=== PATIENT | male | born 1995 | race African-American/Black ===

== ENCOUNTER 2017-10-01 16:09 | Emergency (ER) | payer OTHER ==
[2017-10-01 16:25] VITALS: BP 115/75; PULSE 80; TEMP 98.7; BMI 20.9
--- NOTE | 2017-10-01 16:29 | PDOC ---
History of Present Illness <Adolfo Noe - Last Filed: 10/01/17 17:04> - General History Source: Patient, Parent(s) Exam Limitations: No Limitations - History of Present Illness Initial Comments: 10/01/17 16:43 The patient is a 22 year old male with no significant past medical history who presents to the ED with complaints of abdominal pain, nausea, vomiting, and diarrhea that began last evening while at work. 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 He reports multiple episodes of nonbloody and nonbilious vomiting as well as multiple episodes of brown loose stool which has begun to subsided this afternoon although he remains nauseous. He denies any recent fevers or chills, denies any cough, SOB, CP, or urinary symptoms. <Callie Bellamy - Last Filed: 10/01/17 17:06> - General Chief Complaint: Nausea/Vomiting Stated Complaint: NAUSEA VOMITING AND LOOSE STOOL YESTERDAY AFTER EA Time Seen by Provider: 10/01/17 16:21 Past History - Past Medical History COPD: Yes Other medical history: DENIES - Suicide/Smoking/Psychosocial Hx Smoking History: Never smoked Have you smoked in the past 12 months: No Information on smoking cessation initiated: No Hx Alcohol Use: No Drug/Substance Use Hx: No Substance Use Type: None <Adolfo Noe - Last Filed: 10/01/17 17:04> <Callie Bellamy - Last Filed: 10/01/17 17:06> - Past Medical History Allergies/Adverse Reactions: Allergies Allergy/AdvReac Type Severity Reaction Status Date / Time No Known Allergies Allergy Unverified 10/01/17 16:12 Home Medications: Ambulatory Orders NK [No Known Home Medication] 10/01/17 Review of Systems - Review of Systems Able to Perform ROS?: Yes Comments:: 10/01/17 16:43 CONSTITUTIONAL: Absent: fever, no chills, no fatigue EYES: Absent: visual changes ENT: Absent: ear pain, no sore throat CARDIOVASCULAR: Absent: chest pain, no palpitations RESPIRATORY: Absent: cough, no SOB GI: Present: nausea, vomiting, diarrhea, abdominal pain Absent: no constipation GENITOURINARY: Absent: dysuria, no frequency, no hematuria MUSKULOSKELETAL: Absent: back pain, no arthralgia, no myalgia SKIN: Absent: rash NEURO: Absent: headache All Other Systems: Reviewed and Negative <Callie Bellamy - Last Filed: 10/01/17 17:06> *Physical Exam - Vital Signs Last Vital Signs Temp Pulse Resp BP Pulse Ox 98.7 F 80 16 115/75 98 10/01/17 16:11 10/01/17 16:11 10/01/17 16:11 10/01/17 16:11 10/01/17 16:11 <Adolfo Noe - Last Filed: 10/01/17 17:04> - Vital Signs Last Vital Signs Temp Pulse Resp BP Pulse Ox 98.7 F 80 16 115/75 98 10/01/17 16:11 10/01/17 16:11 10/01/17 16:11 10/01/17 16:11 10/01/17 16:11 - Physical Exam Comments: 10/01/17 17:05 GENERAL: Well-appearing, well-nourished. No apparent distress. HEENT: Normocephalic, atraumatic. PERRL, EOM intact. CARDIOVASCULAR: Normal S1, S2. Regular rate and rhythm. PULMONARY: Clear to auscultation bilaterally. ABDOMEN: Soft, non-distended, non-tender. No organomegaly. EXTREMITIES: Normal ROM in all four extremities. No gross deformities. SKIN: Warm, dry. No rash NEUROLOGICAL: No focal neurological deficits. <Callie Bellamy - Last Filed: 10/01/17 17:06> Medical Decision Making - Medical Decision Making 10/01/17 17:04 Patient with mild gastroenteritis, symptoms resolving. Physical exam is normal and hydration is adequate Light diet and lots of clear liquids recommended. To stay out of work for several days and to recheck if symptoms recur. Fully ambulatory and in no distress upon discharge with his mother to follow-up as directed <Adolfo Noe - Last Filed: 10/01/17 17:04> *DC/Admit/Observation/Transfer - Discharge Dispostion Decision to Admit order: No - Post Discharge Activity Activity Comments: 10/01/17 16:30 If there is fever, worsening vomiting or diarrhea, or inability to hold down liquids, return to the emergency room. Otherwise follow-up with primary physician. <Adolfo Noe - Last Filed: 10/01/17 17:04> - Attestations Scribe Attestion: 10/01/17 16:44 Documentation prepared by Callie Bellamy, acting as ophthalmic medical assistant for Adolfo Villagomez MD. <Callie Bellamy - Last Filed: 10/01/17 17:06> Diagnosis at time of Disposition: Gastroenteritis - Discharge Dispostion Disposition: HOME Condition at time of disposition: Stable - Patient Instructions Printed Discharge Instructions: DI for Diarrhea and Traveler's Diarrhea -- Adult, DI for Nausea -- Adult, DI for Vomiting -- Adult - Post Discharge Activity Forms/Work/School Notes: Back to Work
== END 2017-10-01 16:36 | disposition home or self-care (01) ==
LOC: FER 16:09
DX: K52.9 Noninfective gastroenteritis and colitis, unspecified (principal); J44.9 Chronic obstructive pulmonary disease, unspecified
CPT/HCPCS: 99282-25

== ENCOUNTER 2019-05-25 13:30 | Emergency (ER) | payer OTHER ==
[2019-05-25 13:59] VITALS: BP 120/73; PULSE 108; TEMP 99.2
--- NOTE | 2019-05-25 13:59 | PDOC ---
History of Present Illness - General Chief Complaint: Respiratory Stated Complaint: FLU - History of Present Illness Initial Comments: The pt is a 23M w/ no PMH who presents for evaluation of 1 day of tactile fevers and nasal congestion. Endorses associated cough, decreased PO intake, and known mother sick contact. He has tried Robitussin DM and Tylenol for his symptoms with some relief. Denies vomiting, rash, diarrhea, blood in his urine/stool, dysuria, or changes in sensation. Denies flu vaccine this year. 05/25/19 13:54 Past History - Past Medical History Allergies/Adverse Reactions: Allergies Allergy/AdvReac Type Severity Reaction Status Date / Time No Known Allergies Allergy Verified 05/25/19 13:55 Home Medications: Ambulatory Orders NK [No Known Home Medication] 10/01/17 COPD: Yes - Psycho Social/Smoking Cessation Hx Smoking History: Never smoked Have you smoked in the past 12 months: No Hx Alcohol Use: No Drug/Substance Use Hx: No Substance Use Type: None Review of Systems - Review of Systems Able to Perform ROS?: Yes Comments:: GENERAL/CONSTITUTIONAL: No chills. No weakness HEAD, EYES, EARS, NOSE AND THROAT: No change in vision. No change in hearing. No sore throat CARDIOVASCULAR: No chest pain or shortness of breath RESPIRATORY: Denies hemoptysis GASTROINTESTINAL: No nausea, vomiting, diarrhea or constipation GENITOURINARY: No dysuria, frequency, or change in urination MUSCULOSKELETAL: No joint or muscle swelling or pain. No neck or back pain SKIN: No rash NEUROLOGIC: No headache, vertigo, loss of consciousness, or change in strength/ sensation ENDOCRINE: No increased thirst. No abnormal weight change HEMATOLOGIC/LYMPHATIC: No anemia, easy bleeding, or history of blood clots ALLERGIC/IMMUNOLOGIC: No hives or skin allergy 05/25/19 13:56 Is the patient limited Amharic proficient: No *Physical Exam - Physical Exam GENERAL: Awake, alert, and oriented to person/place/time, in no acute distress HEAD: No signs of trauma, normoc ephalic, atraumatic EYES: PERRLA, EOMI, sclera anicteric, conjunctiva clear ENT: Hearing grossly normal, nares patent, oropharynx clear without exudates. No uvular deviation. Moist mucosa LUNGS: No distress, speaks in full sentences, clear to auscultation bilaterally HEART: Regular rate and rhythm, normal S1 and S2, no murmurs appreciated, peripheral pulses normal and equal bilaterally ABDOMEN: Soft, nontender, normoactive bowel sounds. No guarding, no rebound EXTREMITIES: Normal inspection, Normal range of motion, no edema. No clubbing or cyanosis NEUROLOGICAL: Cranial nerves II through XII grossly intact. Normal speech, normal gait, no focal sensorimotor deficits SKIN: Warm, Dry 05/25/19 13:56 Medical Decision Making - Medical Decision Making The pt is a 23M who presents with 1 day of URI symptoms w/ a known influenza contact viral syndrome vs influenza ED Course Pt non-toxic appearing Influenza swab sent 05/25/19 13:57 Influenza + Pt does not wish to take TamiFlu Plan for D/C w/ PCP f/u Discharge instructions and return precautions given Patient in agreement and verbalized understanding Dispo: Home 05/25/19 15:30 Discharge - Discharge Information Problems reviewed: Yes Clinical Impression/Diagnosis: Influenza A Condition: Good Disposition: HOME - Admission No - Follow up/Referral Referrals: [facility] [Provider Group] - Patient Discharge Instructions Patient Printed Discharge Instructions: DI for Influenza -- Adult Additional Instructions: You were seen in the Emergency Department today and found to have influenza ( the flu). Review the handout provided at discharge. Wash your hands frequently and avoid young children, elderly, and those with poor immune systems ( immunocompromised). Follow up with your primary care doctor within a week. You may take Robitussin, Tylenol, or Mucinex for symptomatic relief. Return to the Emergency Department if you develop fevers despite Tylenol use, chest pain, trouble breathing, worsening symptoms, or any new/concerning symptoms. - Post Discharge Activity Work/Back to School Note: Back to Work, Back to School
--- NOTE | 2019-05-25 15:22 | PDOC ---
Attending Attestation - Resident Resident Name: Kyle Castellanos - ED Attending Attestation I have performed the following: I have examined & evaluated the patient, The case was reviewed & discussed with the resident, I agree w/resident's findings & plan, Exceptions are as noted - HPI HPI: 05/25/19 14:40 23yo male with rhinorrhea, sore throat, cough. Pt has been caring for his mother who was dx with flu a last week. Pt states he felt warm and cold yesterday but did not check his temp. Pt denies n/v/d. - Physicial Exam PE: 05/25/19 15:32 Gen: aaox3, nad HEENT: tm intact b/l, nares with clear discharge, posterior pharynx with mild erythema heart: +s1s2 tachy lungs: cta b/l abd: soft, nt/nd +bs ext: no c/c/e - Medical Decision Making 05/25/19 15:33 a/p: 23yo male with flu like symptoms and also with sick contact +flu -will send flu swab -discussed risks/benefits of tamiflu -will give motrin -will monitor and reassess 05/25/19 15:35 flu a+ discussed po intake and need to stay hydrated also discussed symptom control with tylenol and motrin discussed follow up with pmd will give work note stable for dc to home
[2019-05-25] MEDS ORDERED: IBUPROFEN 600 MG TABLET (FP) PO ONE ×2 (15:33→15:36)
== END 2019-05-25 15:47 | disposition home or self-care (01) ==
LOC: FER 13:30
DX: J09.X2 Influenza due to identified novel influenza A virus with other respiratory manifestations (principal); Z88.8 Allergy status to other drugs, medicaments and biological substances
CPT/HCPCS: 87804; 99281-25

== ENCOUNTER 2019-05-27 18:47 | Emergency (ER) | payer OTHER ==
[2019-05-27 19:10] VITALS: BP 124/70; PULSE 95; TEMP 98.3; BMI 22.2
[2019-05-27] MEDS ORDERED: predniSONE 20 MG TABLET (UD) PO ONE (19:50)
[2019-05-27] MEDS ORDERED: predniSONE 20 MG TABLET (UD) ONE (19:59)
--- NOTE | 2019-05-27 20:32 | PDOC ---
Documentation entered by Sandra Hill SCRIBE, acting as scribe for Mik Aguilar MD. Mik Aguilar MD: This documentation has been prepared by the [employer], SCRIBE, under my direction and personally reviewed by me in its entirety. I confirm that the documentation accurately reflects all work , treatment, procedures, and medical decision making performed by me. History of Present Illness - General Chief Complaint: Allergic Reaction Stated Complaint: ALLERGIC REACTION Time Seen by Provider: 05/27/19 19:10 History Source: Patient Exam Limitations: No Limitations - History of Present Illness Initial Comments: 05/27/19 19:50 The patient is a 23 year old male, with no significant PMH who presents to the emergency department with a rash on dorsum of bilateral hands and on the left elbow. As per patients mom, on the bedside, she reports being diagnosed with the flu on 05/22/2019 and reports stopping tamiflu 2 days ago. She reports that her son was then diagnosed with the flu on 05/25/2019 and denied tamiflu. Patient reports that today the riash on his hands became swollen and painful, especially when making a fist. Patient denies pain on left elbow rash. The patient denies chest pain, shortness of breath, headache and dizziness. Denies fever, chills, nausea, vomiting, diarrhea and constipation. Denies recent travel. Denies dysuria, frequency, urgency and hematuria. Allergies: NKA Past surgical history: No reported hx. Social history: No reported hx of tobacco use, alcohol use or illicit drug use. Assessment and plan: This is a 23-year-old male brought in by his mother for evaluation of a rash to the dorsum of his hands and his left elbow. Patient was recently diagnosed with influenza and is been on Mucinex and Robitussin. These medications are new to the patient. There was no increase in warmth or signs tenderness on palpation of the area. Patient denied any itching to the area as well Given the fact that the rash is not itchy. The erythema/rash does not appear to be infectious in nature as it is not hot or tender. However I will give him a one-time dose of steroids if there is an allergic component it should be helpful. Patient was instructed to follow-up with his primary care doctor if rash does not improve in 48 hours. Past History - Past Medical History Allergies/Adverse Reactions: Allergies Allergy/AdvReac Type Severity Reaction Status Date / Time dextromethorphan Allergy Mild Rash Verified 05/27/19 18:50 [email or web address] Allergy Mild Rash Verified 05/27/19 18:50 Home Medications: Ambulatory Orders NK [No Known Home Medication] 10/01/17 COPD: Yes - Immunization History Immunization Up to Date: Yes - Psycho Social/Smoking Cessation Hx Smoking History: Never smoked Have you smoked in the past 12 months: No Hx Alcohol Use: No Drug/Substance Use Hx: No Substance Use Type: None Review of Systems - Review of Systems Able to Perform ROS?: Yes Comments:: 05/27/19 20:14 General: No fevers or chills, no weakness, no weight loss HEENT: No change in vision. No sore throat,. No ear pain CardioVascular: No chest pain or shortness of breath Respiratory:No cough, or wheezing. Gastrointestinal: no nausea, vomiting, diarrhea or constipation, No rectal bleeding Genitourinary: No dysuria, hematuria, or frequency Musculoskeletal: No joint or muscle pain or swelling Neurologic: No headache, vertigo, dizziness or loss of consciousness Psychiatric: nor depression Skin: (+) Rashes on bilateral hands and left elbow. (+) Rash on hands is swollen and painful. No easy bruising Endocrine: no increased thirst or abnormal weight change Allergic: no skin or latex allergy All other systems reviewed and normal *Physical Exam - Vital Signs Last Vital Signs Temp Pulse Resp BP Pulse Ox 98.3 F 95 H 16 124/70 100 05/27/19 18:48 05/27/19 18:48 05/27/19 18:48 05/27/19 18:48 05/27/19 18:48 - Physical Exam 05/27/19 20:14 GENERAL: The patient is awake, alert, and fully oriented, in no acute distress. HEAD: Normal with no signs of trauma. EYES: Pupils equal, round and reactive to light, extraocular movements intact, sclera anicteric, conjunctiva clear. EXTREMITIES: Normal range of motion, no edema. NEUROLOGICAL: Normal speech, normal gait. PSYCH: Normal mood, normal affect. SKIN: (+) mild erythema to dorsum of hands bilaterally with no increasing warmth or tenderness to area. (+) mild edema of hands bilaterally(+) On left elbow there is mild erythema on extensor surface of elbow with no increased warmth, tenderness or edema. Warm, Dry, normal turgor. Discharge - Discharge Information Problems reviewed: Yes Clinical Impression/Diagnosis: Rash Condition: Good Disposition: HOME - Admission No - Follow up/Referral - Patient Discharge Instructions Additional Instructions: Stop taking all medications at this time as it is unclear as to which medication may be causing the rash. If the rash is worse in 24 hours or not improved in 48 hours follow-up with your primary care doctor. Return to the emergency department immediately with ANY new, persistent or worsening symptoms. Continue any medications as previously prescribed by your physician. You should follow up with your primary doctor as soon as possible regarding today's emergency department visit. . Please make sure your doctor reviews the results of your emergency evaluation. Thank you for coming to the Emergency Department today for your care. It was a pleasure to see you today. Please note that your evaluation is INCOMPLETE until you follow-up with your doctor. - Post Discharge Activity
== END 2019-05-27 20:10 | disposition home or self-care (01) ==
LOC: FER 18:47
DX: R21 Rash and other nonspecific skin eruption (principal); Z88.8 Allergy status to other drugs, medicaments and biological substances
CPT/HCPCS: 99282-25

== ENCOUNTER 2020-11-29 11:50 | Emergency (ER) | payer OTHER ==
[2020-11-29 11:57] VITALS: BP 113/71; PULSE 79; BMI 22.1
[2020-11-29] MEDS ORDERED: LACTATED RINGERS SOLUTION 1000 ML INFUS.BAG IV ONE (12:04)
[2020-11-29 12:33] LABS: BASO % 2.2 % (0-2.0); EOS % 0.9 % (0-4.5); HEMATOCRIT 44.1 % (35.4-49); HEMOGLOBIN 14.8 GM/dl (11.7-16.9); LYMPH % 21.2 % (8-40); MCH 30.5 pg (25.7-33.7); MCHC 33.6 g/dl (32.0-35.9); MEAN CELL VOLUME 90.6 fl (80-96); MEAN PLT VOLUME 7.9 fl (7.5-11.1); MONO % 8.4 % (3.8-10.2); NEUT % 67.3 % (42.8-82.8); PLATELET COUNT 234 10^3/uL (134-434); RBC 4.87 M/mm3 (4.00-5.60); RDW 11.7 % (11.9-15.9); WHITE BLOOD COUNT 4.8 K/mm3 (4.0-10.8)
[2020-11-29 12:49] LABS: ALBUMIN 4.5 g/dl (3.4-5.0); ALK PHOS 55 U/L (45-117); ANION GAP 9 MMOL/L (8-16); BILIRUBIN,TOTAL 0.8 mg/dl (0.2-1); CALCIUM 9.1 mg/dl (8.5-10); CHLORIDE 98 mmol/L (98-107); CO2 26 mmol/L (21-32); GLUCOSE,RANDOM 97 mg/dl (74-106); SGOT/AST 28 U/L (15-37); SGPT/ALT 16 U/L (13-61); SODIUM 133 mmol/L (136-145); TOT PROT 7.6 g/dl (6.4-8.2)
== END 2020-11-29 14:10 | disposition home or self-care (01) ==
LOC: FER 11:50
DX: R55 Syncope and collapse (principal); E86.0 Dehydration
CPT/HCPCS: 36415; 71045-TC-FY; 80053; 82550; 84443; 84484; 85025; 93005; 99284-25

== ENCOUNTER 2021-05-15 13:05 | Emergency (ER) | payer OTHER ==
[2021-05-15 13:44] VITALS: BP 102/69; PULSE 75; TEMP 98.1; BMI 22.1
[2021-05-17 17:08] LABS: SARS-CoV-2 NAA Detected (Not Detected)
== END 2021-05-15 14:42 | disposition home or self-care (01) ==
LOC: FER 13:05
DX: U07.1 COVID-19 (principal); R05.1 Acute cough
CPT/HCPCS: 99283-25; C9803; U0003; U0005